=== PATIENT | female | born 1960 | race Caucasian/White ===

== ENCOUNTER 2020-03-09 23:09 | Observation (INO) | payer BC, SELFPAY ==
[2020-03-09 21:12] VITALS: BMI 38.4
[2020-03-09 21:17] VITALS: BMI 38.4
[2020-03-09 21:44] VITALS: BP 152/89; PULSE 69; RESP 16; TEMP 37.5; O2SAT 96
[2020-03-09 23:19] VITALS: RESP 16; O2SAT 97
--- NOTE | 2020-03-09 23:21 | PCM.HP.STD ---
Problem List (1) SARS pneumonia Status: Acute (2) HTN (hypertension) Status: Chronic History of Present Illness Date of Admission: 03/09/20 Chief Complaint: COUGH The patient is a 59 year old F with a significant history of hypertension who was transferred from [facility] in emergency department because of initial presentation of nonproductive cough. Her symptoms started 3 days ago. Associated with her symptoms is right middle back pain that she associates with coughing. She reports a subjective fever. The highest temperature at home was 99.1 Fahrenheit. Further she has fatigue, weakness, chills and anorexia. She denies loss of taste or loss of smell. She reports dry mouth. Because her step daughter was diagnosed with COVID-19 virus she and her had a Covid 19 test 4 days ago. Her test returned positive. At [facility] reportedly her oxygen saturation was 89%. Past Medical History Past Medical History (Chronic Problems): Chronic Problems HTN (hypertension) (Chronic) Allergies No Known Drug Allergies Adverse Reaction (Unknown, Verified 03/09/20 21:23) none Home Medications: Ambulatory Orders Medication Instructions Recorded Acetaminophen [Tylenol Arthritis] 650 mg PO TID PRN 03/09/20 Amitriptyline HCl 25 mg PO QHS 03/09/20 Atenolol 50 mg PO DAILY 03/09/20 Benzonatate 100 mg PO TID PRN 03/09/20 Enalapril Maleate 20 mg PO DAILY 03/09/20 Hydrochlorothiazide [Hctz] 25 mg PO DAILY 03/09/20 Surgical History: tonsillectomy Smoking Status: Never smoker Tobacco Use: Non-smoker - *Family History Maternal History Items: Cancer, Heart Disease, Hypertension Paternal History Items: Heart Disease, Hypertension Review of Systems Constitutional: Reports: Chills, Fever - Subjective, Malaise, Weakness, Fatigue. Denies: Weight Change HEENT: Denies: Head Aches, Sinus Congestion, Sinus Drainage Cardiovascular: Denies: Chest Pain, Palpitations Respiratory: Reports: Cough. Denies: Shortness of breath at rest, Sputum production Gastrointestinal: Denies: Abdominal Pain, Nausea, Vomiting Genitourinary: Denies: Dysuria Musculoskeletal: Reports: Back Pain. Denies: Joint Pain, Joint Tenderness Skin: Denies: Rash, Wounds Neurological: Denies: Numbness, Tingling, Focal weakness Psychiatric: Denies: Anxiety, Depression, Homicidal Ideations, Suicidal Ideations Hematologic/ Lymphatic: Denies: Easy Bruising, Easy Bleeding VTE Information - Inpt Only VTE Present on Admission: No VTE Mechan Device Prophylaxis: None VTE Pharm Prophylaxis ordered?: Yes Patient Problems: Active and Suspected Problems SARS pneumonia (Acute) - Physical Exam Vitals/I&O's: Vital Signs Temp Pulse Resp BP Pulse Ox 99.5 F H 69 16 152/89 H 97 03/09/20 21:44 03/09/20 21:44 03/09/20 23:19 03/09/20 21:44 03/09/20 23:19 Oxygen Flow Rate (L/min) 32 Oxygen Delivery Method Room Air Weight: 98.3 kg Body Mass Index (BMI) 38.4 General: Alert, Oriented x3, Cooperative HEENT: Atraumatic, PERRLA, EOMI, Normocephalic Neck: Supple, No JVD, Negative Carotid Bruits Lungs: Clear to auscultation, Normal air movement Cardiovascular: Regular rate, Regular Rhythm, Normal S1, Normal S2, No murmurs Abdomen: Bowel Sounds Present, Soft, Non Tender Extremities: No edema, Capillary Refill Less than 3 Seconds Skin: No rashes, No breakdown Musculoskeletal: No Tenderness to Palpation of Joints or Extremities Neurological: Cranial nerves II-XII grossly intact Psych/Mental Status: Normal Affect, Appropriate Current Medications Sodium Chloride () 250 mls @ 15 mls/hr IV .[id number] PRN PRN Reason: Saline Flush Sodium Chloride (0.9% Saline Lock 10 Ml Syringe) 10 - 40 ml IV UD PRN PRN Reason: SALINE FLUSH Assessment/Plan All Active Problems SARS pneumonia (Acute) Acute hypoxemic respiratory insufficiency secondary to SARS Covid 2. Low-grade fever of 99.5 Fahrenheit at our hospital Chest x-ray obtained at [facility] showed hazy bilateral infiltrates greatest in the left lower lobe. strep pneumonia antigen and Legionella urine antigen ordered. Decadron ordered. With nasal cannula oxygen taken off at our hospital her oxygen saturation was 95 to 97%. Will order Decadron for now. We will hold off remdesivir. We will get a continuous pulse ox. If her oxygen saturation falls below 91% will consider remdesivir. Mucinex twice daily ordered. Tylenol as needed for fever and for pain Continue home as needed Melissa Thompson. Tankroom Tender at a hospital tried getting up labs from a patient but was unsuccessful since patient is a hard stick. All labs from the pulmonary hospital were normal. Will not order any blood work at this time unless absolutely necessary. Pulmonary medicine consult. Hypertension Blood pressure was elevated on presentation Atenolol, enalapril, and hydrochlorothiazide continued Depression Amitriptyline continued DVT prophylaxis Subcutaneous Lovenox. OBSV E&M: 97103 Initial observation care L1
[2020-03-10] VITALS (8 sets, daily range): BP systolic 138–151; BP diastolic 80–89; PULSE 55–74; RESP 16–20; TEMP 36.4–37.2; O2SAT 93–97
[2020-03-10] MEDS: Atenolol 50 MG Tablet PO ×2 (00:36→09:14)
[2020-03-10] MEDS: Amitriptyline 25 MG Tablet PO (00:36)
[2020-03-10] MEDS: dexAMETHasone 2 MG TABLET 6 MG PO ×2 (00:36→09:14)
[2020-03-10] MEDS: guaiFENesin 1,200 MG Tablet 1200 MG PO ×2 (00:36→09:14)
[2020-03-10] MEDS: Benzonatate 100 MG Capsule PO (00:48)
[2020-03-10] MEDS: Acetaminophen 325 MG Tablet 650 MG PO (00:48)
[2020-03-10] MEDS: Enoxaparin 30 MG/0.3 ML Syringe SC (09:13)
[2020-03-10] MEDS: hydroCHLOROthiazide 25 MG Tablet PO (09:14)
[2020-03-10] MEDS: Lisinopril 20 MG Tablet PO (09:14)
--- NOTE | 2020-03-10 11:14 | PCM.DC ---
- Discharge Diagnoses Current Active Problems: Current Active and Chronic Problems SARS pneumonia (Acute) HTN (hypertension) (Chronic) You will use the following diet at home:: Cardiac Your food should be the consistency of: Regular Your liquids should be the consistency of: Regular/Thin Discharge Activity: Return to Normal Activity Weight Bearing Status: Weight bearing as tolerated Call your doctor if you observe: Fever of 101 or Higher, Shortness of breath, Dizziness, Swelling in the ankles, Chest pain Instructions: Coronavirus Disease 2019 (COVID-19) Additional Instructions: to stay in isolation until 10 days after her symptoms resolve. Allergies/Adverse Reactions: Allergies No Known Drug Allergies Adverse Reaction (Unknown, Verified 03/09/20 21:23) none Medications to take at Discharge Acetaminophen [Tylenol Arthritis] 650 mg PO TID PRN 03/09/20 Amitriptyline HCl 25 mg PO QHS 03/09/20 Atenolol 50 mg PO DAILY 03/09/20 Benzonatate 100 mg PO TID PRN 03/09/20 Enalapril Maleate 20 mg PO DAILY 03/09/20 Hydrochlorothiazide [Hctz] 25 mg PO DAILY 03/09/20 dexAMETHasone [Dexamethasone] 6 mg PO DAILY #5 tab 03/10/20 The following prescriptions were given: dexAMETHasone [Dexamethasone] 6 mg PO DAILY #5 tab Transmission Status: Pending to [id number] Primary Care Physician: Yolanda Gilliland MD [Primary Care Provider] - Please follow up with your Primary Care Physician in: 2-3 weeks Test Results: Test results from this visit will be discussed in further detail at your follow-up appointment, if applicable. Proposed Discharge Date: 03/10/20
--- NOTE | 2020-03-10 11:20 | DS.PCM_ITS ---
Discharge Date and Diagnosis - Problem List Patient Problems: Active and Suspected Problems SARS pneumonia (Acute) Date of Admission: 03/09/20 Date of Discharge: 03/10/20 - Primary Discharge Diagnosis Acute Problems: Active Problems COVID 19 INFECTION - Secondary Discharge Diagnosis Chronic Problems: Chronic Problems HTN (hypertension) (Chronic) Hospital Course and Treatment Operations: None Procedures: None Summary of Care Provided: The patient is a 59 year old F with a past medical history of hypertension who was at admitted as a transfer from [facility] on account of a nonproductive cough for 3 days as well as back pain with coughing and a subjective fever. He also had assisted fever, weakness and chills as well as anorexia. She denied any loss of taste or smell and also had a dry mouth. His stepdaughter had recently tested positive for COVID-19 to patient had a test 4 days prior to this admission and test was positive. On admission, chest x-ray done at [facility] showed hazy bilateral infiltrates greater in the left lower lobe. She was started on IV Decadron and urine for strep and Legionella were ordered. She was started on IV Decadron and admitted and managed for acute hypoxic respiratory sufficiency due to COVID-19 infection. Pulmonology was consulted. Patient was titrated off her oxygen and was saturating at 93% with ambulation on room air. Patient felt well by 03/10/2020 and wanted to be discharged home. She was discharged home on p.o. Decadron 6 mg daily for 5 days and was counseled to stay isolated for 10 more days after her symptoms resolved. She is to follow-up with her primary care doctor after she is out of isolation for Covid. Patient seen and examined prior to discharge. She felt much better and had no complaints. Review of symptoms otherwise negative. Shortness of breath had resolved. Labs and vitals reviewed. Home medication reviewed and reconciled. Patient improved much quicker than expected and so was discharged on 03/10/2020. O/E: Vital Signs Temp Pulse Resp BP Pulse Ox 98.9 F 64 18 151/81 H 93 03/10/20 12:08 03/10/20 12:08 03/10/20 12:08 03/10/20 12:08 03/10/20 12:08 [] General: Alert, Oriented x3, Cooperative HEENT: Atraumatic, PERRLA, EOMI, Normocephalic Neck: Supple, No JVD, Negative Carotid Bruits Lungs: Clear to auscultation, Normal air movement; on room air Cardiovascular: Regular rate, Regular Rhythm, Normal S1, Normal S2, No murmurs Abdomen: Bowel Sounds Present, Soft, Non Tender Extremities: No edema, Capillary Refill Less than 3 Seconds Skin: No rashes, No breakdown Musculoskeletal: No Tenderness to Palpation of Joints or Extremities Neurological: Cranial nerves II-XII grossly intact Psych/Mental Status: Normal Affect, Appropriate Plan is to dc patient home today, as above. Patient Problems: Active and Suspected Problems SARS pneumonia (Acute) - Physical Exam Vitals/I&O's: Vital Signs Temp Pulse Resp BP Pulse Ox 98.0 F 74 20 H 150/84 H 95 03/10/20 09:07 03/10/20 09:07 03/10/20 09:07 03/10/20 09:07 03/10/20 09:22 Oxygen Flow Rate (L/min) 2 Oxygen Delivery Method Room Air Weight: 216 lb 11.43 oz Body Mass Index (BMI) 38.4 Microbiology Past 72 Hours 03/10/20 01:30 Urine, Clean Catch Legionella Antigen - Final 03/10/20 01:30 Urine, Clean Catch Streptococcus pneumoniae Antigen (M - Final Current Medications Acetaminophen (Acetaminophen 325 Mg Tablet) 650 mg PO Q6H PRN PRN PRN Reason: Pain Score 1-10/Temp > 100.7 F Last Admin: 03/10/20 00:48 Dose: 650 mg Documented by: Amitriptyline HCl (Amitriptyline 25 Mg Tablet) 25 mg PO QHS [facility] Last Admin: 03/10/20 00:36 Dose: 25 mg Documented by: Atenolol (Atenolol 50 Mg Tablet) 50 mg PO DAILY [facility] Last Admin: 03/10/20 09:14 Dose: 50 mg Documented by: Benzonatate (Benzonatate 100 Mg Capsule) 100 mg PO TID PRN PRN PRN Reason: COUGH Last Admin: 03/10/20 00:48 Dose: 100 mg Documented by: Dexamethasone (Dexamethasone 2 Mg Tablet) 6 mg PO DAILY [facility] Last Admin: 03/10/20 09:14 Dose: 6 mg Documented by: Enoxaparin Sodium (Enoxaparin 30 Mg/0.3 Ml Syringe) 30 mg SC BID [facility] Last Admin: 03/10/20 09:13 Dose: 30 mg Documented by: Guaifenesin (Guaifenesin 1,200 Mg Tablet) 1,200 mg PO BID [facility] Last Admin: 03/10/20 09:14 Dose: 1,200 mg Documented by: Hydrochlorothiazide (Hydrochlorothiazide 25 Mg Tablet) 25 mg PO DAILY [facility] Last Admin: 03/10/20 09:14 Dose: 25 mg Documented by: Sodium Chloride () 250 mls @ 15 mls/hr IV .[id number] PRN PRN Reason: Saline Flush Lisinopril (Lisinopril 20 Mg Tablet) 20 mg PO DAILY [facility] Last Admin: 03/10/20 09:14 Dose: 20 mg Documented by: Melatonin (Melatonin 3 Mg Tablet) 3 mg PO QHS PRN PRN PRN Reason: INSOMNIA Ondansetron HCl (Ondansetron 4 Mg/2 Ml Vial) 4 mg IV Q8H PRN PRN PRN Reason: NAUSEA/VOMITING Sodium Chloride (0.9% Saline Lock 10 Ml Syringe) 10 - 40 ml IV UD PRN PRN Reason: SALINE FLUSH Discharge Diet: Low fat/ Low Cholesterol Discharge Activity: Return to Normal Activity Weight Bearing Status: Weight bearing as tolerated Call your doctor if you observe: Fever of 101 or Higher, Shortness of breath, Dizziness, Swelling in the ankles, Chest pain Home Medications: Medications to take at Discharge Acetaminophen [Tylenol Arthritis] 650 mg PO TID PRN 03/09/20 Amitriptyline HCl 25 mg PO QHS 03/09/20 Atenolol 50 mg PO DAILY 03/09/20 Benzonatate 100 mg PO TID PRN 03/09/20 Enalapril Maleate 20 mg PO DAILY 03/09/20 Hydrochlorothiazide [Hctz] 25 mg PO DAILY 03/09/20 dexAMETHasone [Dexamethasone] 6 mg PO DAILY #5 tab 03/10/20 Following Prescriptions Were Given to Patient: dexAMETHasone [Dexamethasone] 6 mg PO DAILY #5 tab Transmission Status: Received by [id number] Primary Care Physician: Yolanda Gilliland MD [Primary Care Provider] - Please follow up with your Primary Care Physician in: 2-3 weeks Patient Instructions: Coronavirus Disease 2019 (COVID-19) Disposition: Home Minutes spent on discharge:: 35 Patient Condition:: Stable Medical Necessity - Tobacco Use Smoking Status: Never smoker Tobacco Use: Non-smoker Meaningful Use Info Meaningful Use Diagnoses (Choose all that apply): None applicable Inpatient E&M: 13165 Disch Hosp
--- NOTE | 2020-03-10 12:10 | CASEMGMT ---
RN CM called patient for initial transition planning/care coordination assessment. RN CM introduced self and role at [facility]. Patient is alert and oriented. Patient willing to participate in assessment and is able to answer all questions appropriately. Care providers, pharmacy, and demographics verified. Patient wishes to discharge home, denies need for home health at this time. Patient states she has no further needs or concerns at this time. CM to follow for discharge planning needs that may arise. PCP: Adry Machado DE ALCHOLIZER Specialists: none Preferred Pharmacy: [facility] Insurance: [employer] Prescription Benefit: yes Living Will/HPOA: none LNOK: Living Arrangements: Patient lives with in a mobile home with 2 steps and railing to enter the home. Patient states she is independent at home Transportation: self/ DME/HHC: Patient denies DME or previous HHC. Disposition Plan: Patient to discharge home with family support and follow-up plans in place. Laura GREER, RN, CM
--- NOTE | 2020-03-10 12:19 | NURSING ---
VERIFIED PRESCRIPTION OF DEXAMETHASONE W/DR VAUGHN AND NOTIFIED THE PHARMACIST, OUSMANE, AT [facility]
== END 2020-03-10 13:40 | disposition home or self-care (01) ==
PROVIDERS: Admitting Provider Family Medicine; PCP Family Medicine; Visit Provider Student in an Organized Health Care Education/Training Program
DX: U07.1 COVID-19 (principal); J12.89 Other viral pneumonia; I10 Essential (primary) hypertension; Z79.899 Other long term (current) drug therapy; R09.02 Hypoxemia; F32.9 Major depressive disorder, single episode, unspecified
CPT/HCPCS: 87449; 96372; 99218; G0378; G0379

== ENCOUNTER 2022-03-23 16:55 | Emergency (ER) | payer BC, SELFPAY ==
[2022-03-23 16:56] VITALS: BP 191/90; PULSE 82; RESP 16; TEMP 36.6; O2SAT 100; BMI 35.6
--- NOTE | 2022-03-23 17:05 | EDS_ITS ---
HPI <AMY Navarrete - Last Filed: 03/23/22 17:28> History of Present Illness Chief Complaint: Cellulitis Narrative Narrative: Patient woke up this morning and had redness and swelling on her nose and both cheeks. It's seeping some clear yellow fluid. She otherwise feels well. No eye involvement, fever chills or URI symptoms. She denies putting anything new on her face or any new foods or medications. PFSH <AMY Navarrete - Last Filed: 03/23/22 17:28> PFSH Home Medications acetaminophen 650 mg tablet,extended release 650 mg PO TID PRN arthritis pain 03/09/20 [History Last Taken 03/09/20] amitriptyline 25 mg tablet 25 mg PO QHS sleep 03/09/20 [History Last Taken 03/08/20] atenolol 50 mg tablet 50 mg PO DAILY blood pressure 03/09/20 [History Last Taken 03/08/20] benzonatate 100 mg capsule 100 mg PO TID PRN Cough 03/09/20 [History Last Taken 03/09/20] enalapril maleate 20 mg tablet 20 mg PO DAILY blood pressure 03/09/20 [History Last Taken 03/09/20] hydrochlorothiazide 25 mg tablet 25 mg PO DAILY blood pressure 03/09/20 [History Last Taken 03/08/20] dexamethasone 2 mg tablet 6 mg PO DAILY #5 tabs 03/10/20 [Rx Last Taken Unknown] cephalexin 500 mg capsule 500 mg PO Q6 7 days #28 CAPSULES 03/23/22 [Rx Last Taken Unknown] sulfamethoxazole 800 mg-trimethoprim 160 mg tablet (Bactrim DS) 1 tab PO BID 7 days #14 tabs 03/23/22 [Rx Last Taken Unknown] Allergy/AdvReac Type Severity Reaction Status Date / Time No Known Drug Allergies AdvReac Unknown none Verified 03/23/22 17:04 Social History Smoking Status: Never smoker ROS <AMY Navarrete - Last Filed: 03/23/22 17:28> ROS ED ROS Narrative Constitutional: Negative for fever, chills, malaise. Eyes: Negative for visual change. ENT: Negative for sore throat, ear pain, rhinorrhea. CVS: Negative for palpitations, chest pain, syncope. Respiratory: Negative for shortness of breath, cough, orthopnea. GI: Negative for abdominal pain, nausea, vomiting, diarrhea, constipation, melena, hematochezia. : Negative for dysuria, hematuria or frequency. Neuro: Negative for headache, motor/sensory dysfunction. Skin: Positive for rash. Musc: Negative for joint pain, swelling, trauma. Heme: Negative for easy bruising, bleeding, lymphadenopathy. EXAM <AMY Navarrete - Last Filed: 03/23/22 17:28> Physical Exam Narrative Exam Narrative: CONST: Patient sitting in no acute distress. EYES: Normal inspection. ENT: Normal inspection, moist mucous membranes with no oral lesions, nares clear. NECK: Normal inspection. RESP: No respiratory distress, CTAB. CVS: Regular rate and rhythm, no murmur, no gallop. SKIN: Well demarcated erythema along the bridge of nose and both cheeks, some weeping clear fluid along the nodes. No vesicles or pustules, no fluctuance or crepitus., No lymphangitic streaking. EXTREMITIES: Normal appearance, no pedal edema. NEURO: Oriented x4. PSYCH: Normal affect. Const Vital Signs: 03/23/22 16:56 03/23/22 17:26 Temperature 97.8 F Temperature Source Temporal Pulse Rate 82 Respiratory Rate 16 18 Blood Pressure 191/90 H Blood Pressure Mean 123 Pulse Ox 100 Oxygen Delivery Method Room Air <Dr. Shivam Benson MD - Last Filed: 03/23/22 18:00> Physical Exam Const Vital Signs: 03/23/22 16:56 03/23/22 17:26 Temperature 97.8 F Temperature Source Temporal Pulse Rate 82 Respiratory Rate 16 18 Blood Pressure 191/90 H Blood Pressure Mean 123 Pulse Ox 100 Oxygen Delivery Method Room Air MDM <AMY Navarrete - Last Filed: 03/23/22 17:28> [facility] Narrative Medical decision making narrative: Patient has a well demarcated red rash along the bridge of her nose and both cheeks that appears like erysipelas. She has no systemic signs of illness and is afebrile with unremarkable vital signs other than chronic hypertension. She will be placed on Bactrim/Keflex with first dose given here and return precautions. She was discharged in stable condition. <Dr. Shivam Benson MD - Last Filed: 03/23/22 18:00> [facility] Narrative Medical decision making narrative: Patient has a well demarcated red rash along the bridge of her nose and both cheeks that appears like erysipelas. She has no systemic signs of illness and is afebrile with unremarkable vital signs other than chronic hypertension. She will be placed on Bactrim/Keflex with first dose given here and return precautions. She was discharged in stable condition. I have personally performed a face to face assessment of the patient and have reviewed the JOHN Note. I performed a substantive portion of the visit including all aspects of the following. My rivas findings include: History is remarkable for facial swelling and redness, chills and crusting left naris. This started abruptly. She has slight drainage noted of her nares. She denies double vision, blurred vision loss of vision. Denies pain with movement of her eyes. She denies swelling of her lips, tongue or mouth. She is diabetic. She states her blood sugars have not been higher than normal. She is slightly anxious. Her blood pressure is elevated. She states she has taken her medicine. Exam is remarkable for erysipelas. Patient has a well demarcated erythematous warm indurated area involving the right maxillary area bridge of the nose to the tip of her nose and slightly over the medial superior aspect of the left maxillary region. There are no oral lesions noted. There is no evidence of angioedema. Pupils equal round reactive. Extraocular muscles are intact. Sclera is anicteric. Conjunctive is noninjected. There is no photophobia. Medical Decision Making patient has a skin infection, erysipelas. Most common organism is streptococcal. Because there is crusting and pustules noted concerned this may represent staphylococcal infection as well. She was treated with cephalexin and Bactrim. Other additions or changes: Patient received first dose of cephalexin and Bactrim in the emergency department. Prescription was sent to the retail pharmacy so that patient can continue taking the antibiotic at home. Discharge Plan Triage Chief Complaint: Cellulitis ED Midlevel Provider: Padmaja Novoa ED Provider: Shivam Benson Dx/Rx/DC Orders Clinical Impression: Erysipelas Instructions: Cellulitis Dc Prescriptions: New cephalexin 500 mg capsule 500 mg PO Q6 7 Days Qty: 28 0RF sulfamethoxazole-trimethoprim [Bactrim DS] 800-160 mg tablet 1 tab PO BID 7 Days Qty: 14 0RF No Action enalapril maleate 20 MG tablet 20 mg PO DAILY acetaminophen 650 MG tablet extended release 650 mg PO TID PRN (Reason: arthritis pain) amitriptyline 25 MG tablet 25 mg PO QHS benzonatate 100 MG capsule 100 mg PO TID PRN (Reason: Cough) hydrochlorothiazide 25 MG tablet 25 mg PO DAILY atenolol 50 MG tablet 50 mg PO DAILY Label Comments: TAKE 1 TABLET BY MOUTH ONCE DAILY dexamethasone 2 MG tablet 6 mg PO DAILY Qty: 5 0RF Primary Care Provider: Majo Machado Referrals: Majo Machado PAHalleC [Primary Care Provider] - Activity Restrictions/Additional Instructions: This appears like a bacterial skin infection which is treated with antibiotics. Please take both as prescribed and if it worsens after 24 to 48 hours on medication come back to the ER. Disposition Disposition: Home, Self Care
[2022-03-23] MEDS: Smz/Tmp Ds Tablet 1 TABLET PO (17:22)
[2022-03-23] MEDS: Cephalexin 250 MG Capsule 500 MG PO (17:22)
[2022-03-23 17:26] VITALS: RESP 18
== END 2022-03-23 18:00 | disposition home or self-care (01) ==
PROVIDERS: Emergency Provider Emergency Medicine; PCP Family Medicine; Visit Provider Emergency Medicine
DX: A46 Erysipelas (principal); E11.9 Type 2 diabetes mellitus without complications
CPT/HCPCS: 99283

== ENCOUNTER → 2023-07-28 | Outpatient (CLI) | payer BC, SELFPAY ==
--- NOTE | 2023-07-28 11:23 | NEURO ---
NCS and/or EMG Patient Report Ordering Doctor: Duke Baum DATE OF SERVICE: 07/28/23 Clinical Summary: 62 year old female with symptoms of numbness and tingling in the distal lower extremities. She has a prior history of back pain. Nerve Conduction Studies Summary: The medial planter SNAP's were absent bilaterally. The left peroneal-EDB CMAP amplitude was reduced diffusely. The peroneal and tibial motor conduction velocities were reduced bilaterally. Needle Examination Summary: Needle examination demonstrated a higher proportion of motor unit action potentials with reduced recruitment, increased amplitude, increased duration, and polyphasia in the left L5 and bilateral S1 myotomes. Impression: There is electrodiagnostic evidence of the following - 1) Chronic, left L5 to S1 polyradiculopathy 2) Chronic, right S1 radiculopathy There is no definite electrodiagnostic evidence of a large-fiber peripheral polyneuropathy. Multi Select Codes Neurology Neurology Interp Codes: 33896-80 Musc test done w/n test comp (interp) (2) and 57199-28 Nrv cndj test 7-8 studies (interp)
== END | disposition home or self-care (01) ==
PROVIDERS: PCP Family Medicine; Referring Provider Psychiatry & Neurology Neurology; Visit Provider Psychiatry & Neurology Neurology
DX: M47.816 Spondylosis without myelopathy or radiculopathy, lumbar region (principal)
CPT/HCPCS: 95886; 95912